=== PATIENT | female | born 1965 | race Two or more races ===

== ENCOUNTER 2020-09-27 12:06 | Emergency (ER) | payer SELFPAY ==
[~2020-09-27] VITALS: Ht 154.9 cm; Wt 86.2 kg
[2020-09-27 12:10] VITALS: BP 154/80
--- NOTE | 2020-09-27 12:19 | NUR ---
ED Nurse Note: Patient was TAYLOR GARAY RA 26 from a [employer] for syncope. Patient reports feeling dizzy then passing out. Patient presented AAO x4, all VSS at this time.
--- NOTE | 2020-09-27 12:24 | NUR ---
AMA: SEE AMA FORM.
--- NOTE | 2020-09-27 12:24 | NUR ---
ED Nurse Note: Patient decided to Leave Hospital Against Medical Advice. Patient stated that she does not have any type of insurance, and can not pay for ER visit. Patient walked out with steasy gait, AAO x4, all VSS at this time, paztient took all belongings.
--- NOTE | 2020-09-27 12:28 | Emergency Room Report ---
History of Present Illness General Chief Complaint: Syncope Source: Patient, EMS Present Illness HPI 40-year-old female with past medical history of hypertension brought in by ambulance with chief complaint of syncope prior to arrival. Patient states that she works at a [employer] and has been experiencing increased levels of stress secondary to lots of customers creating a mess. She states that today she got overwhelmed and felt faint and found herself on the floor. She denied any prodromal headache, neck pain, back pain, chest pain, pelvic pain, or other symptoms. Denies history of seizure, oral trauma, urinary retention, bowel or bladder incontinence, fever, or other symptoms. Since her arrival, patient states that all of her symptoms have resolved and she has a follow-up appointment with her primary care doctor this Saturday. She is refusing further examination, work-up, management at this time and wants to leave the hospital AGAINST MEDICAL ADVICE Past medical history: Hypertension Past surgical history: Denies Smoking: Denies Alcohol use: Denies Drug use: Denies Review of systems: CONST: No fevers or chills, No night sweats PULMONARY: No productive cough, No shortness of breath CARDIAC: No chest pain, No palpitations GI: No vomiting, No diarrhea , No melena_or_BRBPR : No dysuria, No hematuria, No discharge NEURO: No new_focal_weakness_or_numbness, No confusion, No vision changes 14 point Review of Systems is otherwise negative except per HPI Physical Exam: GENERAL: Awake_alert_ nontoxic, no acute distress Spo2 99% on room air-normal EYES: Extraocular muscles are intact. Conjunctivae clear. Lids without swelling ENT: External nose and ear normal_in_appearance. Oropharynx clear. Head_atraumatic, Moist_oral_mucosa NECK: No JVD. No meningismus. No thyromegaly. Supple. Trachea midline RESP: Normal respiratory effort. Symmetric rise. No stridor. Clear_to_auscultation_No_rales_No_wheezes CARDIAC: Regular rate and regular rhytm. No_significant pedal edema. ABDOMEN: Soft. Nondistended. Nontender_No_rebound_or_guarding. No pelvic instability. MSK: Normal muscle tone, without rigidity. Extremities without asymmetric deformity or swelling. SKIN: Warm and dry. No visible cyanosis or pallor NEUROLOGIC: Alert, oriented x 3. Motor_and_sensation_grossly_intact. No truncal ataxia. Gait_normal Psych: Normal mood and affect, normal judgment and insight - COORDINATION OF CARE Case was discussed with: Patient Any labs and imaging that were ordered were interpreted as part of the medical decision making: Medical Decision Making/Plan: Differential includes noncompliance with medication, brain tumor, intracranial bleeding, metabolic encephalopathy, hyponatremia, hypoglycemia, among others. On arrival, patient expressed her desire to leave against medical advice. She was informed that we are very happy to treat her regardless of her ability to pay for emergency services, but she declines, stating that she has an upcoming visit with her doctor this week. She denies symptoms at this time. Patient is back to baseline, no neuro deficits, ambulating steadily without any assistance, understands to take their medications and stable for dc home and f/u with PMD. The patient decided to leave AGAINST MEDICAL ADVICE. They understand the risks, benefits, and alternatives of continued treatment versus leaving. They understand the risks including but not limited to: worsening condition, missed d iagnosis, permanent disability, and even associated with lack of potential further testing, monitoring, and treatments. The patient has capacity to make this decision in my opinion. The patient was encouraged to follow up with their primary care provider as soon as possible and to return immediately if they change their mind or if symptoms worsen or for any other concerns. SLIME Heard was present for the discussion. All patient questions were answered. Allergies: Coded Allergies: No Known Allergies (Unverified , 09/27/20) COVID-19 Screening Contact w/high risk pt: No Experienced COVID-19 symptoms?: No COVID-19 Testing performed CLINICAL ASSISTANT: No Patient History Last Menstrual Period: unk Nursing Documentation-[facility] Hx Hypertension: Yes Physical Exam Vital Signs Date Time Temp Pulse Resp B/P (MAP) Pulse Ox O2 Delivery O2 Flow Rate FiO2 09/27/20 12:05 98.8 92 18 154/80 (104) 99 Room Air Sp02 EP Interpretation: reviewed, normal Medical Decision Making Diagnostic Impression: Primary Impression: Syncope Additional Impression: Hypertension EKG Diagnostic Results Troponin ordered: No Last Vital Signs Date Time Temp Pulse Resp B/P (MAP) Pulse Ox O2 Delivery O2 Flow Rate FiO2 09/27/20 12:10 98.8 18 154/80 99 Room Air 09/27/20 12:05 92 Disposition: AGAINST MEDICAL ADVICE Admit Decision Time: 13:00 Condition: Stable Birgit Burnette D.O. Sep 27, 2020 12:28
== END 2020-09-27 13:00 | disposition left against medical advice (07) ==
LOC: EDBD 12:06 → EMR 12:30 → EDBD 12:30 → EMR 13:00
DX: R55 Syncope and collapse (principal); I10 Essential (primary) hypertension
CPT/HCPCS: 99281